=== PATIENT | female | born 1990 ===

== ENCOUNTER 2018-04-18 11:30 | Emergency (ER) | payer SELFPAY ==
[~2018-04-18] VITALS: Ht 167.6 cm; Wt 70.5 kg
[2018-04-18 13:07] VITALS: BP 128/68
== END 2018-04-18 13:17 | disposition home or self-care (01) ==
LOC: EMS 11:31
DX: S16.1XXA Strain of muscle, fascia and tendon at neck level, initial encounter (principal); S50.811A Abrasion of right forearm, initial encounter; V43.52XA Car driver injured in collision with other type car in traffic accident, initial encounter; Y93.89 Activity, other specified; Y92.89 Other specified places as the place of occurrence of the external cause; Y99.8 Other external cause status
CPT/HCPCS: 99283